=== PATIENT | female | born 1945 | race Caucasian/White ===

== ENCOUNTER 2020-08-25 13:21 | Inpatient (IN) | payer MEDICARE, SELFPAY ==
[2020-08-25] VITALS (15 sets, daily range): BP systolic 114–142; BP diastolic 67–97; PULSE 76–95; RESP 16–20; TEMP 36.4–36.5; O2SAT 98–100; BMI 28.0; BMI 28.3
--- NOTE | ~2020-08-25 | US_ITS ---
EXAMINATION: US carotid duplex BI DATE: 08/26/2020 16:14 INDICATION: Syncope TECHNIQUE: Grayscale, color Doppler, and pulsed Doppler images of the cervical carotid arteries were obtained. The degree of vessel stenosis is placed in one of the following categories: normal, <50%, 5 0-69%, >=70% but less than near-occlusion, near-occlusion, or total occlusion. Note that percent sten osis relative to normal distal artery lumen diameter is indirectly measured from velocity measurement s as described by Tano, et al. Radiology 2003; 229:340-346. COMPARISON: None. FINDINGS: RIGHT: The right common carotid artery (CCA) peak systolic velocity (PSV) is 102 cm/s. The right internal ca rotid artery (ICA) PSV is 109 cm/s. The right ICA end-diastolic velocity (EDV) is 32 cm/s. The right ICA/CCA PSV ratio is 1.0. Grayscale and color Doppler images yield an estimate of <50% diameter reduc tion from plaque in the ICA. The external carotid artery (ECA) PSV is 89 cm/s. There is antegrade luci w in the right vertebral artery. LEFT: The left CCA PSV is 97 cm/s. The left ICA PSV is 82 cm/s. The left ICA EDV is 21 cm/s. The left ICA/C CA PSV ratio is 0.9. Grayscale and color Doppler images yield an estimate of <50% diameter reduction from plaque in the ICA. The ECA PSV is 74 cm/s. There is antegrade flow in the left vertebral artery. IMPRESSION: 1. <50% stenosis in the right internal carotid artery. 2. <50% stenosis in the left internal carotid artery. Reviewed, dictated and finalized at location B. KE NURSE
--- NOTE | ~2020-08-25 | XR_ITS ---
EXAMINATION: XR chest 2V DATE: 08/26/2020 19:19 INDICATION: Transient alteration of awareness TECHNIQUE: PA and lateral views of the chest are obtained. COMPARISON: None available FINDINGS: The lungs are free of acute opacities. There is no pleural effusion or pneumothorax. The ca rdiomediastinal silhouette is normal. Vertebroplasty change is noted in the lower thoracic spine. A c ardiac loop recorder is implanted in the anterior left chest wall. IMPRESSION: 1. No acute cardiopulmonary abnormality. Reviewed, dictated and finalized at location A. DE SALES EXECUTIVE
--- NOTE | 2020-08-25 13:24 | ECG_ITS ---
Measurements Intervals [place] Rate: 82 P: 76 ME: 240 QRS: -49 QRSD: 195 T: 93 QT: 443 QTc: 518 Interpretive Statements SINUS RHYTHM WITH FIRST DEGREE AV BLOCK LEFT AXIS DEVIATION LEFT BUNDLE BRANCH BLOCK BASELINE ARTIFACT- I, AVR ABNORMAL ECG Electronically Signed On 08-25-2020 16:06:05 TEACHER SELECTION SPECIALIST by Luc [place] D.O.
[2020-08-25 13:31] LABS: Glucose Point of Care 102 (65-105)
[2020-08-25 13:39] LABS: Basophils Absolute Auto 0.1 K/mm3 (0.0-0.1); Basophils Percent Auto 0.8 % (0.2-1.2); Eosinophils Absolute Auto 0.4 K/mm3 (0-0.3); Hemoglobin 12.8 g/dL (12.0-15.0); Immature Granulocyte Absolute 0.01 K/mm3 (0.00-0.031); Immature Granulocyte Percent A 0.2 % (0-0.5); Lymphocytes Absolute Auto 2.55 K/mm3 (0.9-3.2); Lymphocytes Percent Auto 42.6 % (18.3-44.2); Mean Corpuscular HGB Conc 32.8 g/dl (32-36); Mean Corpuscular Volume 97.5 fl (80-100); Mean Platelet Volume 9.1 fl (7.4-10.4); Monocytes Absolute Auto 0.6 K/mm3 (0.1-0.6); Monocytes Percent Auto 9.7 % (2.6-8.5); Neutrophils Absolute Auto 2.4 K/mm3 (1.3-6.7); Neutrophils Percent Auto 39.7 % (45.5-73.1); Platelet Count Result 188 k/mm3 (150-375); Red Cell Distribution Width 14.1 % (11.5-14.5)
[2020-08-25 13:52] LABS: Anion Gap 8 mmol/L (8-16); Blood Urea Nitrogen 22 mg/dL (7-17); Carbon Dioxide 26 mmol/L (22-30); Chloride 107 mmol/L (98-107); Estimated CRCL calculation 53 ml/min; Estimated Glomerular Filt Rate 54; Glucose 91 mg/dL (65-105); Potassium 3.8 mmol/L (3.4-5.0); Sodium 141 mmol/L (137-145)
--- NOTE | 2020-08-25 14:05 | ED.SYNCOPE ---
HPI - Syncope General Chief Complaint: Syncope Stated Complaint: syncope Time Seen by Provider: 08/25/20 13:29 Source: patient Mode of arrival: EMS Limitations: no limitations History of Present Illness HPI narrative: 75-year-old female Has a history of atrial fibrillation and is followed by a supervisor product inspection in [place] for that Takes Eliquis and Rythmol Today she was eating lunch with friends at [facility] and became suddenly nauseated and dizzy and vomited, and her told her she passed out although she is not sure about that and he is not here right now Currently she feels very slightly nauseated but otherwise not too bad There was no fall and no injury She does not have now and did not have been any chest pain or any feeling that her heart was actually racing or irregular even though she would like to chalked this up to one of her A. fib spells Related Data Allergies Allergy/AdvReac Type Severity Reaction Status Date / Time Penicillins Allergy Mild RASH Verified 02/05/16 09:04 Sulfa (Sulfonamide Allergy Mild RASH Verified 02/05/16 09:04 Antibiotics) Review of Systems Review of Systems: All systems reviewed & are unremarkable except as noted in HPI and below Constitutional: Constitutional: Denies chills, Denies fatigue, Denies fever(s), Denies headache(s) and Reports weakness Eyes: Eyes: Reports no additional eye complaints and Denies change in vision ENT: Denies headache(s), Denies epistaxis, Denies nasal congestion and Denies sore throat Cardiovascular: Cardiovascular: Denies chest pain, Denies rapid heart rate, Denies leg edema, Denies palpitations and Denies dyspnea Respiratory: Respiratory: Denies cough, Denies dyspnea and Denies wheezing Gastrointestinal: Gastrointestinal: Denies abdominal pain, Denies diarrhea, Reports nausea and Reports vomiting Genitourinary: Genitourinary: Denies urinary frequency Musculoskeletal: Musculoskeletal: Denies deformity, Denies arthralgias, Denies joint swelling, Denies muscle weakness and Denies numbness Integumentary/Breasts: Skin/Breast: Denies rash and Denies wounds Neurologic: Reports syncope, Denies headache(s), Denies focal weakness, Denies numbness and Denies weakness Psychiatric: Psychiatric: Reports no additional psychiatric complaints Endocrine: Endocrine: Denies fatigue and Denies palpitations Hematologic/Lymphatic: Hematologic/Lymphatic: Denies easy bleeding and Denies easy bruising Allergic/Immunologic: Allergic/Immunologic: Denies wheezing [facility] Social History Social History (Updated 08/25/20 @ 14:10 by Bj Duran MD) Living arrangements: with family Gender identity (if verbalized by the patient): Female Exam Const: General: no acute distress, well developed, alert and awake Orientation/consciousness: patient oriented x3 (alert) HENMT: Head: normocephalic, atraumatic and no contusions Ears: external ears normal General nose exam: No nasal discharge present and no epistaxis Face and sinus: face symmetric Eyes: Conjunctivae: conjunctivae normal Sclera: sclerae normal EOM: EOMs intact bilaterally Neck: Neck: normal visual inspection, supple and no JVD Chest: Chest palpation & inspection: deferred Resp: Effort & Inspection: normal respiratory effort Auscultation: clear to auscultation bilaterally and other (BS =) Cardio: Rate: regular rate Rhythm: regular rhythm Heart sounds: no gallops and no murmurs GI: Inspection: normal to inspection GI Palp: Yes Soft to palpation and No Tenderness to palpation present (GI) Back/Spine/Pelvis: Thoracic/Lumbar Spine: thoracic and lumbar spine normal to inspection Skin: General skin exam: normal color and no rashes or lesions noted Neuro: General: patient oriented x3 (alert) and moves all extremities Cranial nerves: Yes facial symmetry Speech: normal speech Other: No drift Extrem: General: normal to inspection, full ROM and no pedal edema Psych: Affect: normal
[2020-08-25 14:38] LABS: Troponin I < 0.012 ng/mL (0.000-0.034)
[2020-08-25] MEDS: LACTATED RINGERS 1,000 ML 250 ML IV CONT (15:07)
[2020-08-25 15:23] LABS: Add Urine Microscopic? YES; Appearance Urine Clear (Clear); Bilirubin Urine Negative (Negative); Blood Urine Negative (Negative); Color Urine Yellow (Yellow); Glucose Urine UA Negative (Negative); Ketones Urine Negative (Negative); Leukocyte Esterase Ur Negative LEU/UL (Negative); Mucus Urine Few /lpf; Nitrate Urine Negative (Negative); Protein Urine 1+ mg/dL (Negative); RBC Urine 0-2 /hpf (0-2); Specific Grav Ur 1.016 (1.001-1.035); Urobilinogen Urine Negative mg/dL (<2.0); WBC Urine 0-3 /hpf
[2020-08-25 17:43] LABS: Troponin I < 0.012 ng/mL (0.000-0.034)
--- NOTE | 2020-08-25 18:55 | PC.NURSE ---
This patient, Geovanna Greene, was admitted to [facility] Surg Room 328-01. Patient/family oriented to hospital policies and general routines including ID bracelet, bed and alarms, visiting hours, pain management, procedures, bathroom and other care routines, personal items, smoking policy, room service/diet, and visiting hours. Information on how to activate the Rapid Response Team has been discussed. Patient/Family are encouraged to report perceived risks to care and to ask questions if they do not understand what they are told or what they should do.
--- NOTE | 2020-08-25 19:57 | ADMGEN ---
This patient, Geovanna Greene, was admitted to [facility] Surg Room 328-01. Patient/family oriented to hospital policies and general routines including ID bracelet, bed and alarms, visiting hours, pain management, procedures, bathroom and other care routines, personal items, smoking policy, room service/diet, and visiting hours. Information on how to activate the Rapid Response Team has been discussed. Patient/Family are encouraged to report perceived risks to care and to ask questions if they do not understand what they are told or what they should do.
[2020-08-26] VITALS (16 sets, daily range): BP systolic 106–122; BP diastolic 57–68; PULSE 69–89; RESP 16–18; TEMP 35.9–37; O2SAT 99–100
--- NOTE | 2020-08-26 | ECHO_ITS ---
Patient Info Name: Geovanna Greene Age: 75 years : 1945 Gender: Female Ht: 70 in Wt: 197 lbs BSA: 2.12 m2 Exam Date: 08/26/2020 11:15 AM Exam Location: [facility] Patient Status: Inpatient Admit Date: 08/25/2020 Staff Ordering Physician: Mirian Nielsen PA-C Internet Site Designer: Queenie Murphy RDCS Attending Provider: Mirian Nielsen PA-C Referring Physician: Gia CALLAWAY; Exam Type: CA echo doppler color flow Study Info Indications - SYNCOPE Complete two-dimensional, color flow and Doppler transthoracic echocardiogram is performed. Summary 1. Complete two-dimensional, color flow and Doppler transthoracic echocardiogram is performed. 2. Left ventricular chamber dimension is normal. 3. Left ventricular systolic function is normal, estimated at 55-60%. 4. Left atrium is top normal in size. 5. There is trace to mild mitral valve regurgitation. 6. There is no aortic stenosis. 7. There is mild tricuspid valve regurgitation. 8. No pulmonary hypertension, estimated pulmonary arterial systolic pressure is 25-30 mmHg. 9. There is no pericardial effusion. Left Ventricle Left ventricular chamber dimension is normal. Left ventricular systolic function is normal, estimated at 55-60%. There is no increased left ventricular wall thickness. Left ventricular septal wall motion is normal. The left ventricular diastolic function is normal. Right Ventricle Right ventricular chamber dimension is normal. Right ventricular systolic function is normal. Left Atria Left atrium is top normal in size. Right Atria Right atrial chamber dimension is normal. Aortic Valve The aortic valve is trileaflet. There is no aortic valve sclerosis. There is trace aortic valve regurgitation. There is no aortic stenosis. Pulmonic Valve The pulmonic valve is normal. There is no pulmonic valve stenosis. There is no pulmonic regurgitation. Mitral Valve The mitral valve has normal leaflets. There is no mitral valve stenosis. There is trace to mild mitral valve regurgitation. Tricuspid Valve The tricuspid valve leaflets are normal. There is no significant tricuspid valve stenosis. There is mild tricuspid valve regurgitation. No pulmonary hypertension, estimated pulmonary arterial systolic pressure is 25-30 mmHg. Pericardium/Pleural The pericardium appears normal. There is no pericardial effusion. Inferior Vena Cava Normal inferior vena cava with >50% collapse upon inspiration. Aorta The aortic root size at the sinus of Valsalva is normal. The prox ascending aorta size is normal. Left Ventricular Outflow Tract Name Value Normal LVOT 2D LVOT Diameter 2.0 cm LVOT Doppler LVOT Peak Gradient 4 mmHg LVOT Mean Gradient 2 mmHg LVOT VTI 20 cm LVOT VTI/AV VTI Ratio 0.8 LVOT Stroke Volume 60 ml Pulmonic Valve Name Value Normal
[2020-08-26] MEDS: APIXABAN 5 MG TABLET PO ×3 (00:38→20:01)
[2020-08-26] MEDS: GABAPENTIN 300 MG CAPSULE PO ×2 (00:39→18:30)
[2020-08-26] MEDS: PROPAFENONE HCL 150 MG TABLET 300 MG PO ×3 (00:40→20:01)
[2020-08-26] MEDS: LACTATED RINGERS 1,000 ML 60 ML IV CONT ×2 (00:45→18:32)
[2020-08-26] MEDS: PRAMIPEXOLE 0.125 MG TABLET 0.375 MG PO ×2 (00:56→18:30)
--- NOTE | 2020-08-26 10:13 | ECG_ITS ---
Measurements Intervals [place] Rate: 80 P: -42 [place]: 175 QRS: -48 QRSD: 190 T: 94 QT: 440 QTc: 510 Interpretive Statements SINUS RHYTHM LEFT AXIS DEVIATION LEFT BUNDLE BRANCH BLOCK BASELINE ARTIFACT- I, AVR, V1 ABNORMAL ECG Electronically Signed On 08-26-2020 11:17:35 RISK MANAGEMENT INTERN by Luc [place] D.O.
[2020-08-26 10:42] LABS: Basophils Absolute Auto 0.1 K/mm3 (0.0-0.1); Basophils Percent Auto 0.9 % (0.2-1.2); Eosinophils Absolute Auto 0.3 K/mm3 (0-0.3); Eosinophils Percent Auto 4.9 % (0-4.4); Hematocrit 39.2 % (37.0-47.0); Hemoglobin 12.8 g/dL (12.0-15.0); Immature Granulocyte Absolute 0.02 K/mm3 (0.00-0.031); Immature Granulocyte Percent A 0.4 % (0-0.5); Lymphocytes Absolute Auto 2.11 K/mm3 (0.9-3.2); Lymphocytes Percent Auto 39.7 % (18.3-44.2); Mean Corpuscular HGB Conc 32.7 g/dl (32-36); Mean Corpuscular Hemoglobin 32.3 pg (26-34); Mean Platelet Volume 9.4 fl (7.4-10.4); Monocytes Absolute Auto 0.5 K/mm3 (0.1-0.6); Monocytes Percent Auto 9.6 % (2.6-8.5); Neutrophils Absolute Auto 2.4 K/mm3 (1.3-6.7); Neutrophils Percent Auto 44.5 % (45.5-73.1); Platelet Count Result 185 k/mm3 (150-375); Red Blood Count 3.96 M/mm3 (4.2-5.4); Red Cell Distribution Width 14.1 % (11.5-14.5); White Blood Count 5.3 K/mm3 (4.5-10.0)
--- NOTE | 2020-08-26 10:42 | PM.IMHP ---
H&P: HPI History of Present Illness Date/Time: 08/26/20 10:42 Chief Complaint: Syncope Narrative: Geovanna Greene is a 75 year old female with PMH significant for atrial fibrillation on anticoagulation s/p 2 ablations with loop recorder present and followed by Dr. Monet at [facility], and restless leg syndrome who presented to the emergency department via EMS on 08/25/20 for the evaluation of syncope. She was in her normal state of health when she went to [facility] with friends yesterday for lunch. She had a large meal (steak, sweet potato, rolls, etc) and a large paco. She was sitting in the noble at the restaurant when she suddenly began to feel lightheaded. She told her she did not feel well. Her noticed that she subsequently became very pale, slumped over, and passed out. He believes that she was unconscious for approximately 30 seconds. She did remained in the noble during the episode and did not fall or suffer any trauma or injury. Her notes no seizure-like activity. She subsequently started vomiting and regained consciousness. She reports that she did not have any associated chest pain, palpitations, or shortness of breath. She currently feels fine. She reports no recent illness or sick contacts. She reports one prior episode of syncope a few years ago when she was at the [facility]. She has no hx of coronary artery disease. On arrival to the emergency department, vitals were stable. Labs and urinalysis were unremarkable. EKG was performed and showed sinus rhythm with first degree AV block, rate 82, left axis deviation, left bundle branch block, and QTc 518. Troponin was <0.012. She was admitted to the hospitalist service under observation status for further care. Review of Systems Review of Systems: Narrative: Constitutional: Denies fever, chills, fatigue, and appetite change. Reports weight gain. Eyes: Denies vision change. No additional eye complaints. ENT: Denies change in hearing, nasal congestion, dysphagia, odynophagia, and sore throat. Cardiovascular: Denies palpitations and chest pain. Denies PND and orthopnea. Denies dyspnea on exertion. Respiratory: Denies cough and shortness of breath. Denies hemoptysis. Gastrointestinal: Denies abdominal pain, nausea, and vomiting. Denies constipation and diarrhea. Denies hematochezia and melena. Genitourinary: Denies dysuria, frequency, urgency, and hesitancy. Denies hematuria. Musculoskeletal: Denies joint pain and swelling. Denies muscle cramps and weakness. Skin: Denies lesions and wounds. Neurologic: Denies focal weakness, paresthesias, confusion, and speech change. Reports restless leg syndrome which interrupts sleep on occasion. Psychiatric: Denies mood change. Denies anxiety and depression. Hematologic: Denies easy bruising and bleeding. All systems reviewed & are unremarkable except as noted in HPI and below [facility] Past Medical History Medical History (Updated 08/26/20 @ 11:12 by Mirian Nielsen PA-C) Paroxysmal atrial fibrillation Restless leg syndrome Surgical History Surgical History History of foot surgery S/P bilateral bunionectomy and S/P surgery for foot abscess History of loop recorder Family History Family History Mother Acute myocardial infarction Hypertension Father Congestive heart failure Lung cancer Social History Social History (Updated 08/25/20 @ 14:10 by Bj Duran MD) Smoking status: Never smoker Alcohol intake: current Drinks per week: 2 Substance use: never Living arrangements: with family Gender identity (if verbalized by the patient): Female Spiritual care concerns: No Meds Home Medications and Allergies Home Medications Medication Instructions Recorded Confirmed Type apixaban [Eliquis] 5 mg PO BID 08/25/20 08/25/20 History gabapentin 300 mg PO QPM
[2020-08-26 10:55] LABS: Anion Gap 2 mmol/L (8-16); Blood Urea Nitrogen 15 mg/dL (7-17); Calcium 8.9 mg/dL (8.4-10.2); Carbon Dioxide 33 mmol/L (22-30); Chloride 105 mmol/L (98-107); Estimated CRCL calculation 53 ml/min; Estimated Glomerular Filt Rate 54; Glucose 81 mg/dL (65-105); Magnesium 1.9 mg/dL (1.6-2.3); Potassium 3.8 mmol/L (3.4-5.0); Sodium 140 mmol/L (137-145)
--- NOTE | 2020-08-26 11:44 | PM.CNCAR ---
Assessment and Plan Assessment and plan (1) History of loop recorder: Code(s): Z98.890 - Other specified postprocedural states Status: Acute Assessment and Plan: Patient is a 75-year-old white woman with history of atrial fibrillation, atrial flutter (status post cardioversion March 2020), COVID pneumonia (April 2020, not requiring hospitalization), restless leg syndrome, who is seen in cardiac consultation for chief complaint of syncope. -Obtain interrogation of her [place] loop recorder to evaluate for possible arrhythmia in the setting of her syncopal episode, which is possibly vasovagal, with nausea and recurrent vomiting and possible associated alcohol-related vasodilatory effects as well. (2) Paroxysmal atrial fibrillation: Code(s): I48.0 - Paroxysmal atrial fibrillation Status: Chronic Assessment and Plan: - she remains in normal sinus rhythm this admission. - to improve management of her atrial fibrillation and atrial flutter in March 2020 requiring cardioversion, patient reports that her dose of propafenone was increased in March 2020 per her primary metal machinist Dr. Monet to current dose of 300 mg q.12 hours. - continue propafenone with close monitoring on telemetry for Chung or tachyarrhythmias. - continue Eliquis as per outpatient regimen. (3) Syncope and collapse: Code(s): R55 - Syncope and collapse Status: Acute Assessment and Plan: - Her syncope occurred with associated nausea and emesis with significant alcohol consumption, and consider vasovagal syncope with additional vasodilatory effects from alcohol. - obtain interrogation of her [place] loop recorder. - given her recent extensive vomiting and 5 beat run of nonsustained ventricular tachycardia on telemetry 08/26/2020 near midnight, replete potassium and magnesium. - Orthostatic blood pressures were reportedly negative for orthostasis. - Obtain echo to evaluate cardiac structure and function. - TSH was normal this admission. - She had carotid ultrasound with less than 50% bilateral internal carotid artery stenosis. - Obtain chest x-ray. (4) Left bundle branch block (LBBB): Code(s): I44.7 - Left bundle-branch block, unspecified Status: Acute Assessment and Plan: - patient has left bundle-branch block which may be new on EKG. - Troponin I negative for injury this admission. - continue to monitor on telemetry in setting of presenting syncope. - She would benefit from repeat outpatient stress testing per her primary metal machinist Dr. Monet to evaluate for ischemia or prior infarction. - obtain EKG and stress testing records (pending) from her primary metal machinist Dr. Monet, where patient reportedly had a distant stress test. History of Present Illness History of Present Illness Consult date/time: 08/26/20 11:44 Patient is a 75-year-old white woman with history of atrial fibrillation, atrial flutter (status post cardioversion March 2020), COVID pneumonia (April 2020, not requiring hospitalization), restless leg syndrome, who is seen in cardiac consultation for chief complaint of syncope. Patient reports her metal machinist is Dr. Monet, [place], [place], at the [facility]. Patient reports she was sitting at a restaurant for lunch, not having had breakfast earlier in the day, when she felt lightheaded and nauseated. She reported that she had consumed a large Tiny. Patient's was with her and he reported that she was pale and had loss of consciousness for approximately 30 seconds although she did not fall, as he was able to support her during this syncope. There was no associated seizure activity. Patient had large amount of continuous emesis over an extended period with onset at the time of her syncope and extending during the period of transfer to the emergency department. Patient's emesis was reported to be nonbloody, with food particles. Kalee
--- NOTE | 2020-08-26 11:49 | PC.NURSE ---
This patient, Geovanna Greene, was received from [[id number]] on 08/26/20 at 1149. Patient/family oriented to unit policies and routines REPORT RECEIVED FROM GWENDOLYN MERCADO.
--- NOTE | 2020-08-26 16:21 | PC.NURSE ---
REP FOR [facility] CAME TO INTERROGATE PATIENT'S LOOP RECORDER. REP SAID RECORDER IS TOO OLD AND FROM 2017 BUT DID CONTACT PATIENTS OWN ROOFING TECHNICIAN ABOUT SETTING UP A NEW ONE.
[2020-08-26] MEDS: ACETAMINOPHEN 325 MG TABLET 650 MG PO (18:30)
[2020-08-26] MEDS: POTASSIUM CHLORIDE 20 MEQ TABLET 40 MEQ PO (18:30)
[2020-08-26] MEDS: MAGNESIUM OXIDE 400 MG TABLET PO (18:34)
[2020-08-27] VITALS (11 sets, daily range): BP systolic 102–110; BP diastolic 60–62; PULSE 69–87; RESP 16–18; TEMP 36.1–36.4; O2SAT 99–100
[2020-08-27 05:11] LABS: Basophils Percent Auto 0.7 % (0.2-1.2); Eosinophils Absolute Auto 0.4 K/mm3 (0-0.3); Eosinophils Percent Auto 6.3 % (0-4.4); Hematocrit 36.6 % (37.0-47.0); Hemoglobin 11.7 g/dL (12.0-15.0); Immature Granulocyte Absolute 0.01 K/mm3 (0.00-0.031); Immature Granulocyte Percent A 0.2 % (0-0.5); Lymphocytes Absolute Auto 3.21 K/mm3 (0.9-3.2); Lymphocytes Percent Auto 52.2 % (18.3-44.2); Mean Corpuscular Hemoglobin 31.6 pg (26-34); Mean Corpuscular Volume 98.9 fl (80-100); Mean Platelet Volume 9.8 fl (7.4-10.4); Monocytes Absolute Auto 0.5 K/mm3 (0.1-0.6); Monocytes Percent Auto 8.8 % (2.6-8.5); Neutrophils Percent Auto 31.8 % (45.5-73.1); Platelet Count Result 177 k/mm3 (150-375); Red Cell Distribution Width 13.9 % (11.5-14.5); White Blood Count 6.2 K/mm3 (4.5-10.0)
[2020-08-27 05:32] LABS: Anion Gap 1 mmol/L (8-16); Blood Urea Nitrogen 17 mg/dL (7-17); Calcium 8.3 mg/dL (8.4-10.2); Carbon Dioxide 33 mmol/L (22-30); Chloride 105 mmol/L (98-107); Estimated CRCL calculation 53 ml/min; Estimated Glomerular Filt Rate 54; Glucose 84 mg/dL (65-105); Magnesium 1.9 mg/dL (1.6-2.3); Potassium 4.1 mmol/L (3.4-5.0); Sodium 139 mmol/L (137-145)
[2020-08-27] MEDS: PROPAFENONE HCL 150 MG TABLET 300 MG PO (09:03)
[2020-08-27] MEDS: MAGNESIUM OXIDE 400 MG TABLET PO (09:04)
[2020-08-27] MEDS: APIXABAN 5 MG TABLET PO (09:04)
--- NOTE | 2020-08-27 09:43 | ECG_ITS ---
Measurements Intervals [place] Rate: 85 P: 43 [place]: 192 QRS: -6 QRSD: 97 T: -2 QT: 346 QTc: 413 Interpretive Statements SINUS RHYTHM INCOMPLETE RIGHT BUNDLE BRANCH BLOCK VOLTAGE CRITERIA FOR LVH BORDERLINE T WAVE ABNORMALITY- ANT/INF LEADS BASELINE WANDER- II, III, AVF BORDERLINE ECG Electronically Signed On 08-27-2020 10:13:07 CRECHE ATTENDANT by Luc [place] D.O.
--- NOTE | 2020-08-27 09:50 | PM.PNCARD ---
Progress Note: A&P Assessment and Plan (1) History of loop recorder: Code(s): Z98.890 - Other specified postprocedural states Status: Acute Assessment and Plan: Patient is a 75-year-old white woman with history of atrial fibrillation, atrial flutter (status post cardioversion March 2020), COVID pneumonia (April 2020, not requiring hospitalization), restless leg syndrome, who is seen in cardiac consultation for chief complaint of syncope. -Attempt to get interrogation of her [place] loop recorder was unsuccessful as battery was at end of life -She has no events on tele. She has intermittent LBBB, appears rate related -Syncope was likely vasovagal, with nausea and recurrent vomiting and possible associated alcohol-related vasodilatory effects as well -2D echo pending. if normal then she should be stable for discharge from cardiac standpoint primary director talent acquisition Dr. Monet (2) Paroxysmal atrial fibrillation: Code(s): I48.0 - Paroxysmal atrial fibrillation Status: Chronic Assessment and Plan: - she remains in normal sinus rhythm this admission. - continue propafenone as per her outpatient regimen - continue Eliquis as per outpatient regimen. (3) Syncope and collapse: Code(s): R55 - Syncope and collapse Status: Acute Assessment and Plan: - Her syncope occurred with associated nausea and emesis with significant alcohol consumption -Likely vasovagal syncope with additional vasodilatory effects from alcohol. - TSH was normal this admission. - She had carotid ultrasound with less than 50% bilateral internal carotid artery stenosis. (4) Left bundle branch block (LBBB): Code(s): I44.7 - Left bundle-branch block, unspecified Status: Acute Assessment and Plan: - patient has intermittent left bundle-branch block, appears rate related. . - Troponin I negative for injury this admission. - . Subjective Date/time seen: 08/27/20 09:50 No overnight events. She denies chest pain or dyspnea. Feels back to baseline Review of Systems Review of Systems: All systems reviewed & are unremarkable except as noted in HPI and below Exam Narrative: Exam Narrative: General: Very pleasant, well-developed, and well-nourished 75 y.o. female who is lying semi-recumbent in bed in no acute distress. HEENMT: Normocephalic and atraumatic. Sclera anicteric. EOMI. Oral mucosa moist. No posterior pharyngeal exudate or injection. Neck: Supple without lymphadenopathy or masses. Cardiac: Regular rate and rhythm. S1 and S2 normal. No murmur appreciated. No JVD. No carotid bruits. Lungs: Effort normal. Lungs are clear to auscultation bilaterally without wheeze, rhonchi, or rales. Abdomen: Bowel sounds are normoactive. Abdomen is soft, non-distended, and non-tender. Musculoskeletal: No joint erythema, swelling, or tenderness. ROM within normal limits. Extremities: Warm and well-perfused. Compression stockings in place without edema or calf tenderness. Dorsalis pedis and posterior tibialis 2+ bilaterally. Neurological: Alert and oriented x4. CN II-XII intact. Upper and lower extremity strength intact and symmetric 5/5. Speech is clear. Skin: Warm and dry. Psychiatric: Judgment and insight intact. Pleasant mood and appropriate affect. Objective Data Vital Signs Vital Signs: Vital Signs - 24 hr 08/26/20 10:45 08/26/20 12:00 08/26/20 12:59 Temperature 36.7 C 37.0 C Pulse Rate 81 83 84 Respiratory Rate 16 18 Blood Pressure 112/66 106/61 Pulse Oximetry 100 100 08/26/20 16:00 08/26/20 17:32 08/26/20 18:00 Temperature 35.9 C L Pulse Rate 83 82 86 Respiratory Rate 16 Blood Pressure 122/68 Pulse Oximetry 100 08/26/20 20:00 08/26/20 20:01 08/26/20 22:00 Temperature 36.3 C L Pulse Rate 79 79 69 Respiratory Rate 16 Blood Pressure 117/67 Pulse Oximetry 100 08/26/20 23:56 08/27/20 00:00 08/27/20 02:00 Temperature 36.2 C L Pulse Rate 75 69 69
--- NOTE | 2020-08-27 15:02 | PM.DS ---
DS: Admitting Diagnosis Admitting Diagnosis Admitting Diagnosis: Syncope DS: Discharge Diagnosis Discharge Diagnosis (1) Syncope and collapse: Code(s): R55 - Syncope and collapse Status: Acute Assessment and Plan: Acute onset. Shafter to be most likely vasovagal in origin following a large meal with associated nausea as well as alcohol intake likely causing vasodilation. Orthostatic BP was negative for orthostatic hypotension. She was euvolemic. Carotid Doppler showed <50%stenosis of right and left internal carotid artery. Echocardiogram showed normal EF, trace MR, and mild TR. TSH wnl. Troponin negative. She was monitored on telemetry and seen in consultation by cardiology. (2) Left bundle branch block (LBBB): Code(s): I44.7 - Left bundle-branch block, unspecified Status: Acute Assessment and Plan: Unknown chronicity. Troponin <0.012 x2 and she had no associated chest pain or exertional dyspnea. She does not recall a hx of having this in the past but is unsure. She follows with Dr. Monet at [facility] for primary cardiology. She has no hx of coronary artery disease. Evaluated by cardiology and felt to be rate related. Echo evaluated. (3) Paroxysmal atrial fibrillation: Code(s): I48.0 - Paroxysmal atrial fibrillation Status: Chronic Assessment and Plan: Chronic. She is s/p ablation x2 and loop recorder is present. She remained in normal sinus rhythm this admission. Continue eliquis and propafenone (4) Restless leg syndrome: Code(s): G25.81 - Restless legs syndrome Status: Chronic Assessment and Plan: Chronic. Continue pramipexole and gabapentin (5) History of loop recorder: Code(s): Z98.890 - Other specified postprocedural states Status: Acute Assessment and Plan: She has a [place] loop recorder present. Attempt to interrogate was unsuccessful as battery was at end of life. She will need to follow up with her system designer, Dr. Monet. DS: Summary Hospital Course Reason for hospitalization: Syncope Hospital Course: date of admission: 08/26/2020 date of discharge: 08/27/2020 Geovanna Greene is 75 year old female with a history of paroxysmal atrial fibrillation and restless leg syndrome who presented to the emergency department on 08/26/20 after an episode of syncope which occurred while she was sitting down after having finished a large meal and alcoholic beverage. Her reported that she became very pale and lost consciousness for approximately 30 seconds. She did not fall or have any injury. She felt in her usual state of health following the episode. Upon presentation to the emergency department, her vital signs were stable, CBC and BMP unremarkable, troponin negative, EKG showed sinus rhythm with 1st degree AV block, LAD, and left bundle-branch block. she was admitted to the hospitalist service for further evaluation and management was seen in consultation by cardiology. Please see above for further details. She felt well following the episode. workup was negative for any cardiac findings, and this was felt to be vasovagal in origin. She was feeling very well and eager to return home. Given her overall improvement, she was determined to no longer require inpatient care and felt to be stable for discharge. We discussed worrisome signs and symptoms for which to return and she was educated on her medications. She will need to follow-up with her primary care provider and with her system designer. She was discharged in hemodynamically stable condition on 08/27/2020. Status at Discharge Functional status at discharge: independent ambulation Overall status at discharge: patient is back to baseline Time Spent with Patient Time attestation: Total time spent providing and/or coordinating discharge services: 45 minutes Time spent: Greater than 30 minutes Exam Narrative: Exam Narrative: Ms. Greene is a well-nourished
== END 2020-08-27 15:42 | disposition home or self-care (01) | DRG 312 ==
LOC: ANHED 17:05 → ANH3MEDSUR 18:06 → ANHIMU 08-26 11:50
PROVIDERS: Emergency Medicine; Physician Assistant; Admitting Provider Internal Medicine; Emergency Provider Emergency Medicine; PCP Family Medicine; Visit Provider Physician Assistant
DX: R55 Syncope and collapse (principal); I44.7 Left bundle-branch block, unspecified; I48.0 Paroxysmal atrial fibrillation; G25.81 Restless legs syndrome; Z98.890 Other specified postprocedural states; Z79.01 Long term (current) use of anticoagulants; Z86.16 Personal history of COVID-19; Z88.0 Allergy status to penicillin; Z88.2 Allergy status to sulfonamides
CPT/HCPCS: 36415; 71046; 80048; 81001; 82948; 83735; 84443; 84484; 85025; 93005; 93306; 93880; 96360; 96361; 99285; A9270; G0378; J7120